=== PATIENT | male | born 1970 | race Two or more races ===

== ENCOUNTER 2017-07-18 08:47 | Emergency (ER) | payer OTHER ==
[~2017-07-18] VITALS: Ht 175.3 cm; Wt 89.8 kg
[2017-07-18 09:35] LABS: Basophils # (auto) 0 uL; Basophils % (auto) 0.5 % (0.0-2.0); Eosinophils # (auto) 0.1 uL; Eosinophils % (auto) 2.4 % (0.0-7.0); Hematocrit 47.7 % (41.0-53.0); Hemoglobin 16.5 g/dL (13.5-17.5); Lymphocytes # (auto) 2.3 uL; Lymphocytes % (auto) 38.7 % (10.0-50.0); Mean Corpuscular Hemoglobin 32.6 pg (28.0-32.0); Mean Corpuscular Hgb Conc. 34.5 g/dL (32.0-36.0); Mean Corpuscular Volume 94.3 fL (80.0-100.0); Mean Platelet Volume 7.2 fL (6.9-10.8); Monocytes # (auto) 0.5 uL; Monocytes % (auto) 8.3 % (0.0-12.0); Neutrophils % (auto) 50.1 % (37.0-80.0); Nucleated Red Blood Cells % 0.1 %; Platelet Count (auto) 247 10^3/uL (140-450); Red Cell Distribution Width 12.7 % (11.8-14.3); White Blood Cell 5.9 10^3/uL (4.4-10.8)
[2017-07-18 10:04] LABS: Albumin 4.4 g/dL (3.4-5.0); BUN/Creatinine Ratio 18.6; Bilirubin, Total 0.5 mg/dL (0.2-1.0); Calcium 9.5 mg/dL (8.5-10.1); Potassium 4.9 mmol/L (3.5-5.1); Total Protein 8.2 g/dL (6.4-8.2)
[2017-07-18] MEDS ORDERED: KETOROLAC TROMETH 60MG/2ML VIAL IM ONE (11:00)
[2017-07-18] MEDS ORDERED: ONDANSETRON HCL 4 MG/2 ML VIAL IM ONE (11:00)
[2017-07-18] MEDS ORDERED: METHOCARBAMOL 500 MG TAB PO ONE (11:00)
[2017-07-18 12:22] VITALS: BP 143/93
== END 2017-07-18 12:29 | disposition home or self-care (01) ==
LOC: ER 08:47 → EDBD 08:47 → ER 12:29
DX: S16.1XXA Strain of muscle, fascia and tendon at neck level, initial encounter (principal); F17.210 Nicotine dependence, cigarettes, uncomplicated; E78.5 Hyperlipidemia, unspecified; X58.XXXA Exposure to other specified factors, initial encounter; Y93.89 Activity, other specified; Y99.8 Other external cause status; Y92.89 Other specified places as the place of occurrence of the external cause
CPT/HCPCS: 36415; 70450; 80053; 85025; 96372; 99285; J1885; J2405

== ENCOUNTER 2019-04-04 02:46 | Inpatient (IN) | payer OTHER ==
[~2019-04-04] VITALS: Ht 175.3 cm; Wt 92.0 kg
[2019-04-04 04:33] LABS: Urine Bacteria NONE SEEN /hpf (None Seen); Urine Blood TRACE /uL (Negative); Urine WBC 1 /hpf (0 - 3)
[2019-04-04 06:00] LABS: Basophils # (auto) 0 uL; Basophils % (auto) 0.2 % (0.0-2.0); Eosinophils # (auto) 0 uL; Eosinophils % (auto) 0.2 % (0.0-7.0); Hematocrit 45.7 % (41.0-53.0); Hemoglobin 15.6 g/dL (13.5-17.5); Lymphocytes # (auto) 1.6 uL; Lymphocytes % (auto) 14.7 % (10.0-50.0); Mean Corpuscular Hemoglobin 32.4 pg (28.0-32.0); Mean Corpuscular Hgb Conc. 34.2 g/dL (32.0-36.0); Mean Corpuscular Volume 94.6 fL (80.0-100.0); Monocytes # (auto) 0.6 uL; Monocytes % (auto) 5.8 % (0.0-12.0); Neutrophils # (auto) 8.6 uL; Neutrophils % (auto) 79.1 % (37.0-80.0); Platelet Count (auto) 229 10^3/uL (140-450); Red Blood Cells 4.83 10^6/uL (4.5-5.90); Red Cell Distribution Width 13.3 % (11.8-14.3); White Blood Cell 10.8 10^3/uL (4.4-10.8)
[2019-04-04 06:01] LABS: Calcium 9.3 mg/dL (8.5-10.1); Potassium 4.4 mmol/L (3.5-5.1)
[2019-04-04 06:07] LABS: Albumin 4.3 g/dL (3.4-5.0); BUN/Creatinine Ratio 14.3; Bilirubin, Total 0.4 mg/dL (0.2-1.0); Total Protein 7.7 g/dL (6.4-8.2)
[2019-04-04] MEDS ORDERED: MORPHINE SULF INJ 2 MG/ML SYRINGE 1ML IV ONE ×2 (07:30→10:45)
[2019-04-04] MEDS ORDERED: ONDANSETRON HCL 4 MG/2 ML VIAL IV ONE ×2 (07:30→10:45)
[2019-04-04] MEDS ORDERED: SODIUM CHLORIDE 0.9% 1,000 ML IV ONE (07:30)
[2019-04-04] MEDS ORDERED: MORPHINE SULF INJ 2 MG/ML SYRINGE 1ML ONE (08:04)
[2019-04-04] MEDS ORDERED: ONDANSETRON HCL 4 MG/2 ML VIAL ONE (08:04)
[2019-04-04] MEDS ORDERED: METOCLOPRAMIDE HCL 5MG/ml INJ 2ml VIAL IV ONE (12:15)
[2019-04-04] MEDS ORDERED: HYDROmorphone HCL 2 MG/ML VL IV ONE (12:15)
[2019-04-04] MEDS ORDERED: ONDANSETRON HCL 4 MG/2 ML VIAL IV PRN (13:30)
[2019-04-04] MEDS ORDERED: HYDROcodone-ACET 5/325MG TAB PO PRN (13:30)
[2019-04-04] MEDS ORDERED: NITROGLYCERIN 0.4 MG SL TAB SL PRN (13:30)
[2019-04-04] MEDS ORDERED: HYDROmorphone HCL 2 MG/ML VL IV PRN (13:30)
[2019-04-04] MEDS ORDERED: MORPHINE SULF INJ 2 MG/ML SYRINGE 1ML IV PRN (13:30)
[2019-04-04] MEDS ORDERED: ACETAMINOPHEN 500 MG TAB PO PRN (13:30)
[2019-04-04] MEDS: SODIUM CHLORIDE 0.9% 1,000 ML IV SCH (14:36)
--- NOTE | 2019-04-04 17:02 | NUR ---
MS admit from ER ANITA PERES admitted to tele/MS after SBAR received. Patient oriented to MAIOCL STONER RN primary RN, unit, room, bed, and unit policies regarding patient care and visiting hours. No signs or symptoms of distress noted at this time. Patient is on room air, denies shortness of breath at this time. Patient states abdominal and right flank pain 2/10, and is not requesting pain medication at this time. Patient has IV 20g in left AC running NS @ 125. Physical assessment performed. Patient is [place] speaking, is at bedside to assist in translating. Reviewed plan of care with patient and , both verbalized understanding. Bed in low and locked position, call light within reach. Will continue to monitor Q1 hour and PRN.
[2019-04-04] MEDS: TAMSULOSIN HYDROCHLORIDE 0.4 MG CAP PO SCH (18:10)
--- NOTE | 2019-04-04 19:38 | NUR ---
Pain Patient complains of pain in the abdomen and right flank 5/10. Will medicate per orders.
--- NOTE | 2019-04-04 19:39 | NUR ---
Closing Note Report given to overnight houseperson RN. Patient is awake, alert and oriented x4. Family at bedside. No signs or symptoms of distress noted at this time.
--- NOTE | 2019-04-04 19:40 | NUR ---
OPENING SHIFT NOTE Assumed care of patient. A&Ox4. Family is at bedside. No s/s of distress. Patient reports mild pain to right flank area, which was treated per MD orders. Patient is on room air, with no signs of SOB. IV to left AC is patent and NS is currently infusing at 125ml/hr. Patient instructed to call for assistance if needed. Bed left in low locked position. Will continue to monitor PRN.
[2019-04-04 21:37] VITALS: BP 123/70
[2019-04-04] MEDS: DOCUSATE SOD 100 MG CAP PO SCH (22:04)
[2019-04-05] MEDS: SODIUM CHLORIDE 0.9% 1,000 ML IV SCH ×4 (01:19→21:21)
[2019-04-05 05:11] VITALS: BP 119/71
[2019-04-05 05:38] LABS: Basophils # (auto) 0 uL; Basophils % (auto) 0.4 % (0.0-2.0); Eosinophils # (auto) 0 uL; Eosinophils % (auto) 0.6 % (0.0-7.0); Hematocrit 44.2 % (41.0-53.0); Hemoglobin 15.1 g/dL (13.5-17.5); Lymphocytes # (auto) 1.9 uL; Lymphocytes % (auto) 26.6 % (10.0-50.0); Mean Corpuscular Hemoglobin 32.7 pg (28.0-32.0); Mean Corpuscular Hgb Conc. 34.2 g/dL (32.0-36.0); Mean Corpuscular Volume 95.6 fL (80.0-100.0); Monocytes # (auto) 0.6 uL; Monocytes % (auto) 8.7 % (0.0-12.0); Neutrophils # (auto) 4.5 uL; Neutrophils % (auto) 63.7 % (37.0-80.0); Nucleated Red Blood Cells % 0.1 %; Platelet Count (auto) 205 10^3/uL (140-450); Red Blood Cells 4.63 10^6/uL (4.5-5.90); Red Cell Distribution Width 13.3 % (11.8-14.3); White Blood Cell 7.1 10^3/uL (4.4-10.8)
[2019-04-05 06:04] LABS: Calcium 8.6 mg/dL (8.5-10.1); Potassium 3.8 mmol/L (3.5-5.1)
[2019-04-05 06:08] LABS: BUN/Creatinine Ratio 16.5
[2019-04-05 06:17] LABS: Cholesterol 197 mg/dL (< 200); Triglycerides 147 mg/dL (< 150)
[2019-04-05 06:19] LABS: HDL Cholesterol 37 mg/dL (40-59); LDL Cholesterol 153 mg/dL (< 100)
[2019-04-05 08:53] VITALS: BP 124/75
[2019-04-05] MEDS: DOCUSATE SOD 100 MG CAP PO SCH ×2 (11:41→21:07)
[2019-04-05] MEDS: PANTOPRAZOLE 40 MG TAB PO SCH (11:41)
[2019-04-05 12:28] VITALS: BP 127/83
[2019-04-05 16:23] VITALS: BP 126/71
[2019-04-05] MEDS ORDERED: MANNITOL FTV 25% 12.5 GM/50 ML 50 ML IV ONE (17:00)
[2019-04-05] MEDS: TAMSULOSIN HYDROCHLORIDE 0.4 MG CAP PO SCH (18:06)
--- NOTE | 2019-04-05 20:00 | NUR ---
OPENING NOTE RECEIVED REPORT FROM DAYSHIFT RN. ASSUMING ROLE OF CARE OF PATIENT AT THIS TIME. PATIENT SHOWING NO SIGN OF DISTRESS, SHORTNESS OF BREATH, AND PATIENT DENIES ANY PAIN AT THIS TIME. PATIENT AND FAMILY EDUCATED ON PLAN OF CARE FOR THE NIGHT AND PATIENT VERBALIZED UNDERSTANDING. BED LOWERED, CALL LIGHT WITHIN REACH, AND PATIENT WILL BE ROUNDED ON EVERY HOUR AND NEEDED.
[2019-04-05 21:53] VITALS: BP 145/87
[2019-04-05] MEDS ORDERED: ATORVASTATIN 20 MG TAB PO SCH (22:00)
[2019-04-06 05:17] VITALS: BP 132/74
[2019-04-06] MEDS: SODIUM CHLORIDE 0.9% 1,000 ML IV SCH ×2 (05:39→10:12)
[2019-04-06 09:00] VITALS: BP 133/78
[2019-04-06] MEDS: DOCUSATE SOD 100 MG CAP PO SCH (10:12)
[2019-04-06] MEDS: PANTOPRAZOLE 40 MG TAB PO SCH (10:12)
[2019-04-06 13:00] VITALS: BP 143/81
[2019-04-06 16:18] VITALS: BP 132/72
--- NOTE | 2019-04-06 19:37 | NUR ---
PATIENT DC HOME FEELING VERY GOOD NO COMPLAINING OF PAIN VITAL SIGNS IN NORMAL LIMITS ALL THE DC INSTRUCTION GAVE TO THE PATIENT Miguel KUMAR
== END 2019-04-06 18:00 | disposition home or self-care (01) | DRG 694 ==
LOC: ER 02:52 → OVERFLOW 11:59 → WEST WING 17:02
PROVIDERS: ADMIT Nurse Practitioner Acute Care; ATTEND Family Medicine
DX: N13.2 Hydronephrosis with renal and ureteral calculous obstruction (principal); E78.5 Hyperlipidemia, unspecified; E78.00 Pure hypercholesterolemia, unspecified; E66.9 Obesity, unspecified; F17.210 Nicotine dependence, cigarettes, uncomplicated; Z83.3 Family history of diabetes mellitus; Z68.30 Body mass index [BMI] 30.0-30.9, adult
CPT/HCPCS: 36415; 74176; 80048; 80053; 80061; 81001; 83690; 85025; 94761; 96361; 96374; 96375; 96376; G0378; J2405